=== PATIENT | female | born 1960 | race Caucasian/White ===

== ENCOUNTER 2016-07-11 12:02 | Day surgery (SDC) | payer MEDICARE, MEDICAID ==
[2016-07-11] VITALS (12 sets, daily range): BP systolic 106–160; BP diastolic 55–88; PULSE 70–87; RESP 11–27; O2SAT 91–95
[~2016-07-11] VITALS: Ht 168.9 cm; Wt 97.9 kg
[~2016-07-11 12:02] MED LIST: ALBU8.5H2 INHALATION; ALLO300T2 PO; AMLO10TA3 PO; CeFAZolin Inj 2 GM in IV Premix 1 EACH IV ONE; FLUO40CA PO; GLPZ5T PO; HYDR50TA3 PO; LORA1TAB PO; METF1000 PO; OMEG-38 PO; OMEP40CA36 PO; OXYC5TAB72 PO; PROM12.510 PO; advair INHALATION
[2016-07-11] MEDS ORDERED: MetoCLOpramide 5 mg/mL 2 mL Inj ONE (12:03)
[2016-07-11] MEDS ORDERED: Rocuronium 10 mg/mL 5 mL Inj ONE (12:03)
[2016-07-11] MEDS ORDERED: Succinylcholine Chloride 20 mg/mL 5 mL Inj ONE (12:03)
[2016-07-11] MEDS ORDERED: Propofol 10,000 mCg/mL 20 mL Inj ONE (12:03)
[2016-07-11] MEDS ORDERED: Glycopyrrolate 0.2 mg/mL 5 mL Inj ONE (12:03)
[2016-07-11] MEDS ORDERED: Ondansetron 2 mg/mL 2 mL Inj ONE (12:03)
[2016-07-11] MEDS ORDERED: Dexamethasone 4 mg/mL Inj ONE (12:03)
[2016-07-11] MEDS ORDERED: fentaNYL-PF 50 mCg/mL 2 mL Inj ONE (12:03)
[2016-07-11] MEDS ORDERED: Neostigmine 1 mg/mL 5 mL Inj ONE (12:03)
[2016-07-11] MEDS ORDERED: CeFAZolin 2 Gm/50 mL D5W Duplex Bag IV ONE (12:13)
[2016-07-11] MEDS: Lactated Ringer's 1,000 ML IV SCH ×2 (12:28→15:01)
[2016-07-11] MEDS ORDERED: Ondansetron 2 mg/mL 2 mL Inj IVPUSH PRN (15:25)
[2016-07-11] MEDS ORDERED: Atropine 0.4 mg/mL Inj IVPUSH PRN (15:25)
[2016-07-11] MEDS ORDERED: MetoCLOpramide 5 mg/mL 2 mL Inj IVPUSH PRN (15:25)
[2016-07-11] MEDS ORDERED: Phenylephrine 10,000 mCg/mL Inj IVPUSH PRN (15:25)
[2016-07-11] MEDS ORDERED: Lactated Ringer's 1,000 ML IV SCH (15:25)
[2016-07-11] MEDS ORDERED: fentaNYL-PF 50 mCg/mL 2 mL Inj IVPUSH PRN (15:25)
[2016-07-11] MEDS ORDERED: hydrALAZINE 20 mg/mL Inj IVPUSH PRN (15:25)
[2016-07-11] MEDS ORDERED: EPHEDrine Sulfate 50 mg/mL Inj IVPUSH PRN (15:25)
[2016-07-11] MEDS ORDERED: Lactated Ringer's 500 ML IV PRN (15:25)
[2016-07-11] MEDS ORDERED: Labetalol 5 mg/mL 4 mL Inj IV PRN (15:25)
[2016-07-11] MEDS ORDERED: Bupivacaine-MPF 0.5% W/EPI 30 mL Inj INFILTRATE ONE (15:30)
--- NOTE | 2016-07-11 15:37 | PCM.HPANE ---
Patient Data Surgeon Admitting Provider: Attending Provider:Mati Victor MD Primary Care Physician:Kain Lerner MD Other Provider:Shanita Nina Anesthesia Reason for Visit Left Neck Lymphadenophadenopathy Ht/WT & BMI Height (Feet): 5 Height (Inches): 6.5 Weight (Kilograms): 98.429 Body Mass Index 34.00 Allergies Uncoded Allergies: VICODIN (HYDROCODONE/ACETAMINOPHEN) (Allergy, Unknown, UNKNOWN, 07/05/16) Past Anesthesia History Anesthesia History: Denies:: Anesthesia Reactions, Malignant Hyperthermia Diabetes History Hx Diabetes?: Yes (07/05/16 HGB A1C 6.1) Type of Diabetes: Type II Glycemic Control: Oral Medication MRSA MRSA: No Medications Hypertension Medication: Yes (AMLODIPINE,HCTZ) Reported Medications [place]-3/Dha/Epa/Fish Oil (Fish Oil 1,000 mg Softgel)1 Each Capsule1 Each PO DAILY 07/05/16 Fluoxetine 40 Mg Tebtvqj18 Mg PO DAILY Ref 0 07/05/16 Lorazepam 1 Mg Tablet1 Mg PO Q4H PRN For Anxiety Ref 0 07/05/16 Omeprazole 40 Mg Capsule.dr40 Mg PO DAILY Ref 0 07/05/16 Promethazine 12.5 Mg Baccws77.5-25 Mg PO Q4H PRN For Nausea/Vomiting 08/05/15 oxyCODONE 5 Mg Tablet5 Mg PO Q4H PRN For Pain Ref 0 08/05/15 Metformin (Glucophage)1,000 Mg Tablet1,000 Mg PO BID Ref 0 08/05/15 Hydrochlorothiazide 50 Mg Ujkxiq56 Mg PO DAILY 30 Days Ref 0 08/05/15 Glipizide 5 Mg Tablet5 Mg PO BID 30 Days 08/05/15 Amlodipine 10 Mg Pmjrho50 Mg PO DAILY Ref 0 08/05/15 Allopurinol 300 Mg Jqwkgr981 Mg PO DAILY Ref 0 08/05/15 [advair] No Conflict Check1 Puffs INHALATION BID PRN COPD 08/05/15 Albuterol HFA (Proair HFA)8.5 Gm Hfa.aer.ad2 Puffs INHALATION Q4H copd #1 INHALER 08/05/15 Discontinued Reported Medications [proxetine] No Conflict Check40 Mg PO DAILY DEPRESSION 12/02/15 Ondansetron 4 Mg Tablet4 Mg PO Q8H PRN For Nausea/Vomiting 08/05/15 Loperamide 2 Mg Capsule2 Mg PO Q4H PRN For Diarrhea or Loose Stool 08/05/15 History History of ENT Problems?: No Hx of Heart Problems?: Yes Cardiovascular History: Positive for:: Hypertension Denies:: Congestive Heart Failure (HERCEPTIN-INDUCED CARDIOMYOPATHY) Other Cardiac History: HX OF ANEMIA Hx of Respiratory Problem?: No Respiratory History: Denies:: Use of C-PAP Machine Hx Neurologic Problems?: No Hx of GI Problems?: Yes Gastrointestinal History: Positive for:: Liver Disease (HX LIVER DAMAGE FROM GOUT) Other GI Pertinent History: HX ILEUS/CECAL PERFORATION/ABCESS FOLLOWING HYST/ PELVIC LYMPH NODE DISSECTION & OMENTECTOMY 2003 Hx of Problems?: No Female Hx: Positive for:: Problems with Breasts? (S/P LT BREAST BX FOR CA) Denies:: Currently Endometriosis Pelvic Inflammatory Skin History: Denies:: History Skin Disorders? Hx Musculoskeletal Problems?: Yes Musculoskeletal History: Positive for:: Osteoarthritis Hx of Psycho/Social Problems?: No Hx Surgeries?: Yes (BETH/BSO,EXC TUMOR FROM OVARY,PELVIC LYMPH NODE DISSECTION, OMENTECTOMY,LT BR) Hx Any Other Health Problems?: Yes Other History: Positive for:: Cancer (LT BREAST CA) Denies:: Endocrine Disease Hospitalization Thyroid Disease Hx Diabetes: Yes (07/05/16 HGB A1C 6.1) Other Pertinent History: LT NECK LYMPHADENOPATHY=CURRENT PROBLEM Have You Smoked inLast 12 mo: Yes Stop/Bang S-Snoring: Do You Snore Loudly: No T-Tired: feel tired, fatigued: No O-Obsered: Observed not breath: No P-Blood Pressure: treated: Yes B- Body Mass Index > 35 kg/m2: No A- Age over 50: Yes N- Neck Large Circumference: No G- Gender Male: No REUBEN Total Score: 2 Risk Assessment Category Category 1A: Patient has history of documented sleep apnea, and HAS NOT received any narcotic, sedative or anesthesia administration during this stay. Category 1B: Patient has history of documented sleep apnea, and HAS received any narcotic , sedative or anesthesia administration during this stay Category 2: Patient has SUSPECTED Obstructive Sleep Apnea, and HAS received any narcotic , sedative or anesthesia administration during this stay. Category 3: Patient has SUSPECTED Obstructive Sleep Apnea and HAS NOT received narcotic, sedative or anesthesia administration during this stay. Category 4: Outpatient in Procedural Areas with known sleep apnea or who screen positive for High Risk via the STOP/BANG questionnaire. Exam Exam General Appearance: Alert, Oriented X3, Cooperative, No Acute Distress HEENT/AIRWAY: MP 2, Neck Movement (FROM), Mouth Opening (3 FBMO, upper dentures , multiple broken teeth) Lungs: Clear to Auscultation, Wheezes Heart: Exam Unremarkable, Regular Rate/Rhythm, No Murmurs/Rubs/Gallops Plan Impression Patient chart reviewed, patient interviewed and anesthestic plan with risks, benefits, and alternatives discussed, and informed consent obtained. NPO Status: > 8 hrs ASA Physical Status: ASA3 Severe Disease (COPD) Anesthetic Plan: GA Bene/Risks/Altern/Consents: Yes HP Complete Prior to Induction: Yes Villa Valdez MD Jul 11, 2016 12:25
[2016-07-11] MEDS ORDERED: Ketorolac 15 mg/mL Inj IVPUSH PRN (16:00)
[2016-07-11] MEDS ORDERED: oxyCODONE-Acetamin 5-325 mg Tablet PO PRN (16:00)
--- NOTE | 2016-07-11 16:05 | PCM.SURGOP ---
Surgical Operative Report Date of Service: Jul 11, 2016 Pre Operative Diagnosis Left supraclavicular lymphadenopathy Post Operative Diagnosis Same Procedure: Left neck excisional lymph node biopsy Surgeon and Employee Services Manager: Surgeon: Mati Victor MD Assistants: Angelina Felix PA-C Indication for Procedure 56-year-old woman who had a history of T2, N2a left breast cancer in 2011, treated with partial mastectomy and complete axillary lymph node dissection. She was treated with adjuvant chemotherapy and radiation therapy. In April, she developed a palpable mass in her left lower neck. Imaging studies demonstrated a 1.8 cm lymph node in the left neck, with abnormal uptake on PET scan with an SUV of 8.5. She underwent an ultrasound-guided biopsy, which showed a metastatic carcinoma, poorly differentiated. After discussion of risks and benefits, she agreed to proceed with left neck excisional biopsy. Findings: The left neck lymph node was white and firm, but no other pathologic lymph nodes were appreciated. Procedure Details After smooth induction of general endotracheal anesthesia, she was placed in the supine position, with the head turned to the right, and was prepped and draped in wide sterile fashion. A procedural pause was performed according to the SCOAP checklist, and all were found to be in agreement. A transverse incision was made in the left lateral neck in the skin lines over the palpable mass. Dissection was carried down with electrocautery through the platysma muscle. Subplatysmal skin flaps were raised superiorly and inferiorly. Dissection was carried down with electrocautery until the supraclavicular fat pad was exposed. The palpable mass was present, and mobile. There were no other pathologic masses by palpation in the neck. The pathologic mass was dissected free from the surrounding tissue using the LigaSure device. Ex vivo, it was a lymph node, which was replaced by metastatic tumor, firm and white. It was labeled as left supraclavicular lymph node, and sent for permanent pathology. Hemostasis was adequate. The platysma muscle was closed with an interrupted 3-0 Vicryl suture. The skin incision was closed with a running 4-0 Monocryl subcuticular stitch. Dermabond was applied to the skin as a dressing. At the end of the case all needle and sponge counts were correct 2. The patient was awakened from anesthesia without difficulty, and taken to the recovery room in satisfactory condition, having tolerated the procedure well. Complications There were no periprocedural complications identified. Surgical Specimen Removed: Yes Specimen sent to Pathology: Yes Surgical Specimen description: Left supraclavicular lymph node Anesthetic Plan: GA Grafts, Implants: None Output, Estimated Blood Loss: 10 Blood Administration during starks: No Drains: None Catheters: None copies to: Kain Lerner MD; Mk Regalado MD, Joshua D MD Jul 11, 2016 16:04
--- NOTE | 2016-07-11 16:26 | PCM.ANEP1 ---
Post Anesthesia Phase 1 PACU Phase 1 Assessment Date of Service: Jul 11, 2016 Vital Signs Vital Signs Date Time Temp Pulse Resp B/P Pulse Ox O2 Delivery O2 Flow Rate FiO2 07/11/16 16:15 83 27 125/61 91 Nasal Cannula 4 07/11/16 16:10 83 25 133/77 91 Simple Mask 8 07/11/16 16:07 36.9 87 27 160/88 94 Simple Mask 8 07/11/16 12:42 36.2 74 16 134/76 94 Room Air Anesthetic Administered: GA Level of Alertness: Awake, talking ALVAREZ's with Equal Strength: Yes Pain: No Nausea or Vomiting: No Oxygen Delivery: Simple Mask Lungs: Clear to Auscultation, Wheezes Dermatome Level: Full Sensation Villa Valdez MD Jul 11, 2016 16:26
[2016-07-11] MEDS ORDERED: Albuterol-Ipratropium 3 mL Inhalation Solution ONE (16:27)
--- NOTE | 2016-07-11 16:27 | PCM.ANEP2 ---
Post Anesthesia Evaluation ASA/CMS Post Anesthesia VS in Patient's Normal Range?: Yes Resp Stable; Airway Patent?: Yes CV Function & Hydration Stable: Yes Mental Status Recovered?: Yes Pain control Satisfactory?: Yes N/V Control Satisfactory?: Yes Villa Valdez MD Jul 11, 2016 16:26
[2016-07-11] MEDS ORDERED: Albuterol-Ipratropium 3 mL Inhalation Solution NEB PRN (16:30)
--- NOTE | 2016-07-14 16:20 | PATH ---
SURGICAL PATHOLOGY Attending Physician:Lloyd Robles CASE STATUS: Signed Out PATIENT NAME: AURELIO PARKINSON PID: [id number] : 1960 DATE COLLECTED:07/11/2016 22:25 SPECIMEN: Lymph Node, Biopsy CLINICAL HISTORY: 1). LEFT SUPRACLAVICULAR LYMPH NODEHISTORY METASTATIC BREAST CARCINOMA HISTORY OVARIAN MUCINOUS LMP 2003 FINAL DIAGNOSIS: 1.LEFT SUPRACLAVICULAR LYMPH NODE: METASTATIC CARCINOMA, CONSISTENT WITH BREAST PRIMARY. ICD10 code C77.3 NOTE: A preliminary report of metastatic carcinoma was telephoned to Dr. Victor' voicemail on 07/13/[address] Cramer. As part of a routine quality project manager, Dr. Louis Camacho has also reviewed this case and consurs with the diagnosis. GROSS DESCRIPTION: The specimen is received in formalin, labeled with the patient's name, sublabeled as left supraclavicular lymph node and consists of a lymph node (2.2 x 2.0 x 1.7 cm). Section code: (A) lymph node, serially sectioned, represented. 07/12/16 JM MICRO DESCRIPTION: Sections are of a large lymph node that is largely replaced by a malignant neoplasm characterized by cells in large nests or cords with necrosis, or in micropapillary configurations. Immunohistochemical stains are performed to further characterize the tumor. The patient tissue is stained with the following antibodies with the following results. Positive and negative controls stain appropriately. AntibodyResult CK7 (OV-TL /30)Strongly positive BUDDY-3 ([id number])Positive, weak to moderate nuclear staining ER (SP1)Negative TTF-1 (8G7G3/1)Negative Napsin A (IP64)Negative Interpretation: These results are consistent with metastatic breast carcinoma. This test was developed and its performance characteristics determined by [employer]. It has not been cleared or approved by the U. [place]. Food and Drug Administration. The FDA has determined that such clearance or approval is not necessary. This test is used for clinical purposes. It should not be regarded as investigational or for research. ICD-9 CODES: CPT CODES: 1: 04623, 85017, 01298, 91688, 89187, 42405 PROCEDURE/ADDENDA: Addendum SPI Addendum Diagnosis {Not Entered} Addendum Comment The microscopic slides were reviewed to address questions of extranodal extension and specimen margins in response to a query from Dr. Addison. The lymph node is largely replaced (80-90%) by carcinoma which has micropapillary features in some areas. There is a thin capsule with very little extranodal connective tissue. In the areas with no apparent extranodal connective tissue, the tumor within the lymph node capsule is a fraction of a millimeter from the margin. In the areas with a small amount of extranodal tissue, a few nests of carcinoma cells can be identified. It is difficult to determine whether these represent true extranodal metastases or artifactual displacement of tumor, however, because the tumor is quite friable and does not generate a desmoplastic response. Thus, it is difficult to say with certainty whether there is extranodal extension but these nests are suspicious for extranodal tumor. If these nests do represent extranodal extension, the final margin is likely positive. These findings were discussed by telephone with Dr. Addison on 08/04/[address] Cramer. Electronically Signed Out Elizabeth Cramer MD Electronically Signed Out Elizabeth Cramer MD [facility] [address], [place] [address] Technical component performed at [facility], [facility] [address], [place], [address]
[2016-08-31] MEDS ORDERED: PARO40TA3 PO (15:31)
== END 2016-07-11 23:59 | disposition home or self-care (01) ==
LOC: SAS 12:02
PROVIDERS: ATTEND Student in an Organized Health Care Education/Training Program
DX: C77.0 Secondary and unspecified malignant neoplasm of lymph nodes of head, face and neck (principal); Z85.3 Personal history of malignant neoplasm of breast; E11.9 Type 2 diabetes mellitus without complications; I10 Essential (primary) hypertension; F17.210 Nicotine dependence, cigarettes, uncomplicated
CPT/HCPCS: 38510; J0330; J0690; J1100; J2405; J2710; J2765; J7120; J7620